=== PATIENT | female | born 1990 | race Caucasian/White ===

== ENCOUNTER → 2018-03-06 14:47 | Outpatient (REF) | payer OTHER, SELFPAY ==
--- NOTE | 2018-03-06 13:30 | PAPFT_PTH ---
PATIENT: AMIRAH TERAN LOC: [facility] U#:[id number] AGE/SX: 35/F ROOM: RE03/06/[address]: SOLIS Luevano : 1990 BED: DIS: SPEC #: [id number] RECD: 03/09/18 13:02 STATUS: SULMA RILEY #: [id number] WING: 03/06/18 13:[address]: Mariel Hernandez DEPT: [facility] Cytology RECD BY: Allison Melendez Tissues: 1 - CX/ENDOCX FOR PAP SMEARS Procedures: PAP THIN PREP/[facility] Screening Comments: [id number] (CHLAMYDIA GC)
[2018-03-10 14:38] LABS: Chlamydia Result Negative; GC Result Negative; Specimen Description SEE COMMENTS
== END ==
LOC: LBN 14:47
PROVIDERS: PCP Nurse Practitioner Family; Visit Provider Nurse Practitioner Family
DX: Z11.3 Encounter for screening for infections with a predominantly sexual mode of transmission (principal); Z12.4 Encounter for screening for malignant neoplasm of cervix
CPT/HCPCS: 87491; 87591; 88142